=== PATIENT | female | born 1960 | race Caucasian/White ===

== ENCOUNTER 2016-07-31 09:17 | Day surgery (SDC) | payer BC ==
[2016-07-28 10:58] VITALS: BMI 31.8
[2016-07-31] MEDS ORDERED: MIDAZOLAM HCL 2 MG/2 ML SINGLE DOSE VIAL ONE (11:16)
[2016-07-31] MEDS ORDERED: morphine CARPU-JECT 10 MG/1 ML DISP.SYRIN ONE (11:25)
[2016-07-31] MEDS ORDERED: BUPIVACAINE HCL/PF 0.5% (5MG/ML) 10 ML VIAL ONE (11:25)
[2016-07-31] MEDS ORDERED: PROPOFOL 20 ML ONE ×2 (11:35→12:08)
[2016-07-31] MEDS ORDERED: ceFAZolin SODIUM 1 GM VIAL ONE (11:43)
[2016-07-31] MEDS ORDERED: DEXAMETHASONE SOD PHOSPHATE 4 MG/1 ML VIAL ONE (11:46)
[2016-07-31] MEDS ORDERED: ONDANSETRON 4 MG/2 ML VIAL ONE (11:46)
[2016-07-31] MEDS ORDERED: ACETAMINOPHEN 325 MG TABLET (FP) PO PRN (12:34)
[2016-07-31] MEDS ORDERED: LACTATED RINGERS SOLUTION 1,000 ML IV SCH (12:45)
[2016-07-31] MEDS ORDERED: ONDANSETRON 4 MG/2 ML VIAL IVPUSH PRN (13:44)
[2016-07-31] MEDS ORDERED: PROMETHAZINE HCL 25 MG/1 ML VIAL IVPUSH PRN (13:45)
[2016-07-31] MEDS ORDERED: oxyCODONE HCL 5 MG TABLET PO PRN (14:23)
[2016-07-31] MEDS ORDERED: ONDANSETRON 4 MG/2 ML VIAL IVPUSH ONE (15:40)
[2016-07-31 17:55] VITALS: TEMP 98.4
[2016-07-31 17:59] VITALS: BP 124/68; PULSE 72
--- NOTE | 2016-08-01 14:36 | OP ---
DATE OF OPERATION: 07/31/2016 PREOPERATIVE DIAGNOSIS: Tearing of the medial meniscus to the right knee. 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 PROCEDURE PERFORMED: Operative arthroscopy of the right knee with partial medial and lateral meniscectomy, chondroplasty, synovectomy and joint debridement, and local stem cell recruitment for osteochondral defect using microfracture technique. SURGEON: Nidia Malik MD WINDOWS APPLICATION ADMINISTRATOR: ROBE Garcia ANESTHESIOLOGIST: Leighann Byers DO ANESTHESIA: General anesthesia. DESCRIPTION OF PROCEDURE: Procedure consisted of the patient being brought in the operating room and gently transferred from the stretcher to the OR table with all bony prominences well padded. The right leg was prepared and draped in sterile fashion. Patient given intravenous antibiotics and copious irrigation throughout the procedure to minimize risk of infection. A complete risks and benefits discussion was performed prior to the surgery which was inclusive of but not limited to infection, bleeding, , paralysis, increased pain, need for repeat surgery. Patient asked questions about the procedure and decided to proceed with surgical treatment. Following sterile preparation and draping of the right leg, the leg was exsanguinated using sterile Esmarch bandage. Tourniquet inflated to 325 mmHg. An appropriate timeout which was inclusive of but not limited to patient name, type of surgery, site of surgery, anesthesia was conducted, identifying the correct side of surgery. Following sterile preparation and draping and correct side of surgery identification, the leg was exsanguinated. Tourniquet was inflated to 325 mmHg. Suprapatellar, medial and lateral joint line portals were used to introduce laparoscopic instruments. The knee was examined and was noted to have hypertrophic synovium in the suprapatellar pouch. A partial synovectomy was performed. The inferior surface of the patella had damage consistent with chondromalacia and this was smoothed using a shaver and radiofrequency wand. The medial and lateral gutters were without plica or loose body. The medial meniscus was found to have tear of the posterior horn and this was resected using a shaver and radiofrequency wand.There was noted to be an osteochondral defect of 1-1/4 cm in diameter; this was debrided and microfracture technique, using all bony awls of appropriate angle and shape, was used to create a microfracture pattern to allow local stem cells to be recruited and to refill the cartilage defect. Intercondylar region was evaluated. The intercondylar region was found to have joint debris and a joint debridement was performed. The anterior cruciate ligament was found to be intact. The lateral meniscus was found to have a tear of the posterior horn and this was smoothed using a shaver and a radiofrequency wand. The tourniquet was deflated after approximately 20 minutes' tourniquet time.The knee was then copiously irrigated withsterile saline irrigant and the wounds were closed with 4-0 undyed Vicryl followed by Steri-Strips, Xeroform, 4 x 4's, combine sterile Webril followed by Lawrence bandage and a knee immobilizer. The patient was then gently awoken from anesthesia without incident and transferred from the operating room to the recovery room in satisfactory condition. There were no intraoperative complications.The tourniquet was deflated after approximately 20 minutes' tourniquet time. NIDIA MALIK M.D. [id number] MTDD
--- NOTE | 2016-08-01 16:21 | PATH ---
Surgical Pathology Report Patient Name: LENA PRESLEY [facility]. Rec. #: [id number] /Age/Gender: 1960 (Age: 56) / F Account: [id number] Location: [facility] AMBULATORY Taken: 07/31/2016 Received: 07/31/2016 Reported: 08/01/2016 Physicians: Judah Malik M.D. Specimen(s) Received SHAVINGS RIGHT KNEE Clinical History Right knee internal derangement Final Diagnosis KNEE, RIGHT, ARTHROSCOPIC SHAVINGS: FIBROSYNOVIAL TISSUE, FIBROCOLLAGENOUS TISSUE AND CARTILAGE. Electronically Signed Nadia Arguello M.D. Gross Description Received in formalin labeled "shavings right knee," is a 3.0 x 2.5 x 0.3 cm aggregate of oliva-yellow soft tissue fragments. The formalin is filtered and the specimen is entirely submitted in one cassette. /07/31/2016 saudi/07/31/2016
== END 2016-07-31 18:20 | disposition home or self-care (01) ==
LOC: FASU 09:17
PROVIDERS: ATTEND Orthopaedic Surgery
PROC: 0SQC4ZZ Repair Right Knee Joint, Percutaneous Endoscopic Approach (ICD-10-PCS; 2016-07-31)
PROC: 0SBC4ZZ Excision of Right Knee Joint, Percutaneous Endoscopic Approach (ICD-10-PCS; principal; 2016-07-31 11:55)
DX: S83.241A Other tear of medial meniscus, current injury, right knee, initial encounter (principal); S83.281A Other tear of lateral meniscus, current injury, right knee, initial encounter; M94.261 Chondromalacia, right knee; M67.261 Synovial hypertrophy, not elsewhere classified, right lower leg; M25.861 Other specified joint disorders, right knee; M21.961 Unspecified acquired deformity of right lower leg; X58.XXXA Exposure to other specified factors, initial encounter; Y93.9 Activity, unspecified; Y92.9 Unspecified place or not applicable
CPT/HCPCS: 88304-TC; 94760